=== PATIENT | female | born 2000 | race Caucasian/White ===

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

== ENCOUNTER 2023-08-01 23:00 | Emergency (ER) | payer OTHER, BC ==
[2023-08-01] MEDS ORDERED: KETOROLAC 15 MG/ML 1 ML VIAL IM STA (23:44)
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
[2023-08-02 00:55] VITALS: BP 114/66; PULSE 66; RESP 18; TEMP 97.9
--- NOTE | 2023-08-02 03:01 | XR ---
EXAM: XR Left Shoulder Complete, 3 Views CLINICAL HISTORY: Pain TECHNIQUE: Two or more views of the left shoulder. COMPARISON: No relevant prior studies available. FINDINGS: Bones/joints: Unremarkable. No acute fracture. No dislocation. Soft tissues: Unremarkable. IMPRESSION: No acute abnormality.
--- NOTE | 2023-08-02 03:04 | XR ---
EXAM: XR Left Clavicle Complete, 3Views CLINICAL HISTORY: pain TECHNIQUE: Frontal and lordotic views of the left clavicle. COMPARISON: No relevant prior studies available. FINDINGS: Bones/joints: Unremarkable. No acute fracture. No dislocation. Soft tissues: Unremarkable. IMPRESSION: Normal left clavicle x-rays.
== END 2023-08-02 02:50 | disposition left against medical advice (07) ==
LOC: EC 23:00
DX: M25.512 Pain in left shoulder (principal); Z86.59 Personal history of other mental and behavioral disorders; Z53.29 Procedure and treatment not carried out because of patient's decision for other reasons; V89.2XXA Person injured in unspecified motor-vehicle accident, traffic, initial encounter; Y92.410 Unspecified street and highway as the place of occurrence of the external cause
CPT/HCPCS: 99283

== ENCOUNTER 2024-07-30 14:27 | Emergency (ER) | payer BC, OTHER ==
[2024-07-30 16:17] LABS: Basophils # (A) 0.1 k/uL (0-0.2); Basophils % (A) 0 %; Eosinophils # (A) 0.1 k/uL (0-0.7); Eosinophils % (A) 1 %; HCT 40.3 % (34.0-46.0); HGB 13.3 gm/dL (11.4-16.0); Lymphocytes # (A) 3.5 k/uL (1.0-4.8); Lymphocytes % (A) 28 %; MCV 87.7 fL (80.0-100.0); Mean Platelet Volume 8.5; Monocytes # (A) 0.6 k/uL (0-1.0); Monocytes % (A) 4 %; Neutrophils # (A) 8.2 k/uL (1.3-7.7); Neutrophils % (A) 65 %; Platelet Count 262 k/uL (150-450); RBC 4.59 m/uL (3.80-5.40); WBC 12.6 k/uL (3.8-10.6)
[2024-07-30] MEDS: PANTOPRAZOLE 40 MG/10 ML VIAL IVP STA (16:20)
--- NOTE | 2024-07-30 16:20 | XR ---
EXAMINATION TYPE: XR chest 1V portable DATE OF EXAM: 07/30/2024 4:15 PM COMPARISON: None. CLINICAL INDICATION: Female, 24 years old with history of upright. eval for air under the diaphragm; [facility] TECHNIQUE: XR chest 1V portable Frontal view of the chest. FINDINGS: Lungs/Pleura: There is no evidence of pleural effusion, focal consolidation, or pneumothorax. Pulmonary vascularity: Unremarkable. Heart/mediastinum: Cardiomediastinal silhouette is unremarkable. Musculoskeletal: No acute osseous pathology. Other findings: None Lines/Tubes: IMPRESSION: No acute cardiopulmonary disease/process. No evidence of free air. [facility], , 07/30/2024 4:17 PM
[2024-07-30] MEDS: ONDANSETRON 4 MG/2 ML VIAL IVP STA (16:21)
[2024-07-30] MEDS: SODIUM CHLORIDE 0.9% 1,000 ML IV STA (16:22)
[2024-07-30 16:27] VITALS: PULSE 54; RESP 17
[2024-07-30 16:34] LABS: ALT 39 U/L (4-34); AST 39 U/L (14-36); African American GFR (CKD) >90 (>60 ml/min/1.73 sqM); Alkaline Phosphatase 61 U/L (38-126); Amylase 99 U/L (30-110); Anion Gap 18 mmol/L; Blood Urea Nitrogen 12 mg/dL (7-17); Calcium 10.8 mg/dL (8.4-10.2); Carbon Dioxide 22 mmol/L (22-30); Chloride 100 mmol/L (98-107); Glucose 76 mg/dL (74-99); Lipase 82 U/L (23-300); Non-African American GFR(CKD) >90 (>60 ml/min/1.73 sqM); Potassium 4.1 mmol/L (3.5-5.1); Sodium 140 mmol/L (137-145); Total Bilirubin 0.6 mg/dL (0.2-1.3); Total Protein 9.8 g/dL (6.3-8.2)
[2024-07-30 16:35] LABS: INR 1.1 (<1.2); Partial Thromboplastin Time 23.8 sec (22.0-30.0); Prothrombin Time 11.9 sec (10.0-12.5)
--- NOTE | 2024-07-30 17:21 | ED ---
General Adult HPI - General Chief complaint: GI Bleed Stated complaint: Blood in vmt/stool Time Seen by Provider: 07/30/24 15:38 Source: patient, family, RN notes reviewed, old records reviewed Mode of arrival: ambulatory - History of Present Illness Initial comments: 24-year-old female presents emergency department complaining of possible GI bleed. States she has noticed darker colored emesis as well as stool. States that started last night where she was drinking Santos's and monsters as well as eating many different types of food at a [employer]. States she began throwing up what she described as darker liquid emesis as well as seeing darker brown stools. States she threw up all night and last episode of emesis or diarrhea was this morning approximately 7 AM. Is concerned she may have an ulcer or ruptured ulcer which is why she presents emergency department for further evaluation. Is not on blood thinners. No history of ulcers. States this is never occurred before. No history of clotting disorders in herself or family members. Currently feels well at this time. Presents for further evaluation. She may have eaten tomato sauce or other red items last night at the [employer]. - Related Data Previous Rx's Medication Instructions Recorded Amoxicillin/Potassium Clav 1 tab PO BID 5 Days #9 tab 01/29/20 [Augmentin 875-125 Tablet] Famotidine [Pepcid] 20 mg PO DAILY 14 Days #14 tablet 07/30/24 Allergies Allergy/AdvReac Type Severity Reaction Status Date / Time No Known Allergies Allergy Verified 07/30/24 14:33 Review of Systems ROS Statement: Those systems with pertinent positive or pertinent negative responses have been documented in the HPI. Review of Systems: CONST: Denies fever EYES: Denies blurry vision ENT: Denies nasal congestion C/V: Denies Chest pain RESP: Denies shortness of breath GI: Denies abdominal pain : Denies dysuria SKIN: Denies rash. MSK: Denies joint pain. NEURO: Denies headache ROS Other: All systems not noted in ROS Statement are negative. Past Medical History Past Medical History: No Reported History History of Any Multi-Drug Resistant Organisms: None Reported Past Surgical History: No Surgical Hx Reported Past Psychological History: Anxiety, Depression Smoking Status: Never smoker, Vaper Past Alcohol Use History: None Reported Past Drug Use History: None Reported, Marijuana General Exam - General Exam Comments Initial Comments: General: Appears in no acute distress. HEAD: Normal with no signs of head trauma. EYES: EOMI ENT: Hearing grossly intact, normal oropharynx. RESPIRATORY: Clear breath sounds bilaterally. No wheezes, rales, or rhonchi. C/V: Regular rate and rhythm. S1 and S2 auscultated, no edema, peripheral pulses 2+ and intact throughout ABD: Abd is soft, nontender, nondistended EXT: Normal range of motion, no obvious deformity SKIN: No rashes or lesions observed on exposed skin. NEURO: Alert and oriented x 4. Course Vital Signs 07/30/24 07/30/24 07/30/24 14:29 16:18 17:23 Temperature 98.8 F 99.1 F Pulse Rate 89 54 L 54 L Respiratory 18 17 17 Rate Blood Pressure 144/90 137/83 108/71 O2 Sat by Pulse 98 100 100 Oximetry Medical Decision Making - Medical Decision Making Was pt. sent in by a medical professional or institution (, PA, BULK MAIL CLERK, urgent care, hospital, or [place] health care facility...) When possible be specific @ -No Did you speak to anyone other than the patient for history (EMS, parent, family, police, friend...)? What history was obtained from this source @ -No Did you review nursing and triage notes (agree or disagree)? Why? @ -I reviewed and agree with nursing and triage notes Were old charts reviewed (outside hosp., previous admission, EMS record, old EKG, old radiological studies, urgent care reports/EKG's, [place] health care facility records)? Report findings @ -No old charts were reviewed Differential Diagnosis (chest pain, altered mental status, abdominal pain women, abdominal pain men, vaginal bleeding, weakness, fever, dyspnea, syncope, headache, dizziness, GI bleed, back pain, seizure, CVA, palpatations, mental health, musculoskeletal)? @ -Gastritis, GI bleeding, nausea and vomiting, dehydration. This list is not all inclusive. EKG interpreted by me (3pts min.). @ -None done X-rays interpreted by me (1pt min.). @ -Chest x-ray revealed no evidence of free air under the diaphragm. No acute cardiopulmonary process. CT interpreted by me (1pt min.). @ -None done U/S interpreted by me (1pt. min.). @ -None done What testing was considered but not performed or refused? (CT, X-rays, U/S, labs)? Why? @ -None What meds were considered but not given or refused? Why? @ -None Did you discuss the management of the patient with other professionals (professionals i.e. , PA, BULK MAIL CLERK, lab, RT, psych nurse, rn social work, white lead filterer, teacher, jailer/training officer, case advocate)? Give summary @ -No Was smoking cessation discussed for >3mins.? @ -No Was critical care preformed (if so, how long)? @ -No Were there social determinants of health that impacted care today? How? (Homelessness, low income, unemployed, alcoholism, drug addiction, transport ation, low edu. Level, literacy, decrease access to med. care, custodial, rehab)? @ -No Was there de-escalation of care discussed even if they declined (Discuss DNR or withdrawal of care, Hospice)? DNR status @ -No What co-morbidities impacted this encounter? (DM, HTN, Smoking, COPD, CAD, Cancer, CVA, ARF, Chemo, Hep., AIDS, mental health diagnosis, sleep apnea, morbid obesity)? @ -None Was patient admitted / discharged? Hospital course, mention meds given and route, prescriptions, significant lab abnormalities, going to OR and other pertinent info. @ -Based on patient's presentation and physical exam, presents emergency department with darker emesis as well as darker colored stool last night after drinking all night eating many different foods [employer] last night. Low concern for GI bleed at this time however patient is concerned for this. She has no symptoms right now. Vital signs are within acceptable limits. We considered obtaining a rectal exam however she would like to defer until laboratory studies and workup are completed. We will obtain laboratory studies, upright chest x-ray. She will be symptomatically treated with IV fluids, Zofran, Protonix. Patient was in agreement this plan. During IV access, patient did have a near syncopal episode. She quickly recovered. Likely had a vasovagal episode. Currently has no symptoms. Will continue to monitor. Chest x-ray revealed no signs of free air under the diaphragm. Labs are remarkable for slight leukocytosis of 12 which is likely reactive. Remainder the workup unremarkable including normal coags, normal platelets, normal hemoglobin. BUN is within normal limits as well and this would expected to be elevated in the setting of upper GI bleed. Lactic acid is also within acceptable limits. On reevaluation, patient is feeling well, tolerating oral intake. I discussed the workup with her as well as her mother. Answered all questions that they had. We all agree she requires no further testing. Recommended follow-up with her PCP or gastroenterology which she will be can contact information for. Discussed avoidance of alcohol and other irritating foods as well as return to the emergency department if worsening symptoms. She was in agreement this plan. Patient did have an additional episode of emesis here in the department but was clear with no evidence of bleeding or redness. I will provide the patient with a prescription for ODT nba Bull. I instructed the patient to follow up with their PCP in the next 1-3 days. I provided contact information for follow up with gastroenterology. I explained that the patient should return to the emergency department if they experience any worsening symptoms. Strict return precautions were discussed with the patient. The patient expressed understanding of these instructions. I answered all questions that the patient had. The patient was discharged home in good condition with their prescriptions and follow up information. Undiagnosed new problem with uncertain prognosis? @ -No Drug Therapy requiring intensive monitoring for toxicity (Heparin, Nitro, Insulin, Cardizem)? @ -No Were any procedures done? @ -No Diagnosis/symptom? @ -Nausea and vomiting Acute, or Chronic, or Acute on Chronic? @ -Acute Uncomplicated (without systemic symptoms) or Complicated (systemic symptoms)? @ -Uncomplicated Side effects of treatment? @ -No Exacerbation, Progression, or Severe Exacerbation? @ -No Poses a threat to life or bodily function? How? (Chest pain, USA, MA, pneumonia, PE, COPD, DKA, ARF, appy, cholecystitis, CVA, Diverticulitis, Homicidal, Suicidal, threat to staff... and all critical care pts) @ -Unlikely - Lab Data Result diagrams: 07/30/24 16:03 07/30/24 16:03 Lab Results 07/30/24 07/30/24 07/30/24 Range/Units 15:45 15:50 16:03 WBC 12.6 H (3.8-10.6) k/uL RBC 4.59 (3.80-5.40) m/uL Hgb 13.3 (11.4-16.0) gm/dL Hct 40.3 (34.0-46.0) % MCV 87.7 (80.0-100.0) fL MCH 29.0 (25.0-35.0) pg MCHC 33.0 (31.0-37.0) g/dL RDW 13.0 (11.5-15.5) % Plt Count 262 (150-450) k/uL MPV 8.5 Neutrophils % 65 % Lymphocytes % 28 % Monocytes % 4 % Eosinophils % 1 % Basophils % 0 % Neutrophils # 8.2 H (1.3-7.7) k/uL Lymphocytes # 3.5 (1.0-4.8) k/uL Monocytes # 0.6 (0-1.0) k/uL Eosinophils # 0.1 (0-0.7) k/uL Basophils # 0.1 (0-0.2) k/uL PT (10.0-12.5) sec INR (<1.2) APTT (22.0-30.0) sec Sodium (137-145) mmol/L Potassium (3.5-5.1) mmol/L Chloride (98-107) mmol/L Carbon Dioxide (22-30) mmol/L Anion Gap mmol/L BUN (7-17) mg/dL Creatinine (0.52-1.04) mg/dL Est GFR (CKD-EPI)AfAm (>60 ml/min/1.73 sqM) Est GFR (CKD-EPI)NonAf (>60 ml/min/1.73 sqM) Glucose (74-99) mg/dL Plasma Lactic Acid Mario (0.7-2.0) mmol/L Calcium (8.4-10.2) mg/dL Total Bilirubin (0.2-1.3) mg/dL AST (14-36) U/L ALT (4-34) U/L Alkaline Phosphatase (38-126) U/L Total Protein (6.3-8.2) g/dL Albumin (3.5-5.0) g/dL Amylase (30-110) U/L Lipase (23-300) U/L Blood Type A Positive Blood Type Confirm A Positive Blood Type Recheck No Previous Record Bld Type Recheck Status CABO Indicated Antibody Screen NEGATIVE Spec Expiration Date 08/02/2024 - 234407/30/24 07/30/24 07/30/24 Range/Units 16:03 16:03 16:03 WBC (3.8-10.6) k/uL RBC (3.80-5.40) m/uL Hgb (11.4-16.0) gm/dL Hct (34.0-46.0) % MCV (80.0-100.0) fL MCH (25.0-35.0) pg MCHC (31.0-37.0) g/dL RDW (11.5-15.5) % Plt Count (150-450) k/uL MPV Neutrophils % % Lymphocytes % % Monocytes % % Eosinophils % % Basophils % % Neutrophils # (1.3-7.7) k/uL Lymphocytes # (1.0-4.8) k/uL Monocytes # (0-1.0) k/uL Eosinophils # (0-0.7) k/uL Basophils # (0-0.2) k/uL PT 11.9 (10.0-12.5) sec INR 1.1 (<1.2) APTT 23.8 (22.0-30.0) sec Sodium 140 (137-145) mmol/L Potassium 4.1 (3.5-5.1) mmol/L Chloride 100 (98-107) mmol/L Carbon Dioxide 22 (22-30) mmol/L Anion Gap 18 mmol/L BUN 12 (7-17) mg/dL Creatinine 0.79 (0.52-1.04) mg/dL Est GFR (CKD-EPI)AfAm >90 (>60 ml/min/1.73 sqM) Est GFR (CKD-EPI)NonAf >90 (>60 ml/min/1.73 sqM) Glucose 76 (74-99) mg/dL Plasma Lactic Acid Mario 1.3 (0.7-2.0) mmol/L Calcium 10.8 H (8.4-10.2) mg/dL Total Bilirubin 0.6 (0.2-1.3) mg/dL AST 39 H (14-36) U/L ALT 39 H (4-34) U/L Alkaline Phosphatase 61 (38-126) U/L Total Protein 9.8 H (6.3-8.2) g/dL Albumin 6.0 H (3.5-5.0) g/dL Amylase 99 (30-110) U/L Lipase 82 (23-300) U/L Blood Type Blood Type Confirm Blood Type Recheck Bld Type Recheck Status Antibody Screen Spec Expiration Date Disposition Clinical Impression: Nausea and vomiting Disposition: HOME SELF-CARE Condition: Good Instructions (If sedation given, give patient instructions): Acute Nausea and Vomiting (ED) Additional Instructions: Monitor your nausea and vomiting and diarrhea. If worsening symptoms return to the emergency department. Likely have some degree of gastritis with nausea and vomiting. Your workup today was unremarkable. Follow-up with your PCP in the next 1 to 3 days. Return if any worsening symptoms. Eat a bland diet over the next few days and avoid any alcohol or red-colored foods to avoid any confusion regarding bleeding. Prescriptions: Famotidine [Pepcid] 20 mg PO DAILY 14 Days #14 tablet Is patient prescribed a controlled substance at d/c from ED?: No Referrals: Marjorie Johnson MD [Primary Care Provider] - 1-2 days Jailene Garcia MD [STAFF PHYSICIAN] - 1-2 days Time of Disposition: 17:20
[2024-07-30] MEDS: ONDANSETRON 4 MG ODT STARTER PACK 2 TAB BTL PO STA (17:27)
[2024-07-30 17:29] VITALS: BP 108/71; TEMP 99.1
== END 2024-07-30 17:33 | disposition home or self-care (01) ==
LOC: EC 14:27
DX: R11.2 Nausea with vomiting, unspecified (principal); F17.290 Nicotine dependence, other tobacco product, uncomplicated
CPT/HCPCS: 36415; 86900; 86901; 80053; 82150; 83605; 83690; 85025; 85610; 85730; 86850; 71045; 99285; 96374; 96375; 96361; J2405; S0119; J2470